=== PATIENT | female | born 1960 | race African-American/Black ===

== ENCOUNTER 2018-01-29 15:24 | Emergency (ER) | payer MEDICARE, MEDICAID ==
[~2018-01-29] VITALS: Ht 154.9 cm; Wt 54.0 kg
[2018-01-29 15:25] VITALS: BP 125/61
[2018-01-29] MEDS ORDERED: LEVO25TA7 PO (15:28)
[2018-01-29] MEDS ORDERED: LORAZEPAM 0.5MG TABLET PO ONE (16:15)
== END 2018-01-29 22:28 | disposition left against medical advice (07) ==
LOC: ER 16:14
DX: F41.0 Panic disorder [episodic paroxysmal anxiety] (principal); E05.90 Thyrotoxicosis, unspecified without thyrotoxic crisis or storm
CPT/HCPCS: 93005; 99284

== ENCOUNTER 2018-04-01 18:39 | Emergency (ER) | payer MEDICARE, MEDICAID ==
[~2018-04-01] VITALS: Ht 154.9 cm; Wt 55.0 kg
[~2018-04-01 18:39] MED LIST: LEVO25TA7 PO
[2018-04-01] MEDS ORDERED: LORAZEPAM 0.5MG TABLET PO ONE (21:45)
[2018-04-01 22:09] LABS: BASOPHILS % 0.6 % (0.0-2.0); EOSINOPHILS % 0.3 % (0.0-5.0); HEMATOCRIT. 34.8 % (36.0-48.0); HEMOGLOBIN. 11.6 g/dL (12.0-16.0); LYMPHOCYTES % 28.5 % (20.0-50.0); MEAN CORPUSCULAR HEMOGLOBIN 28.3 pg (28.0-32.0); MEAN CORPUSCULAR VOLUME 84.7 fL (81.0-99.0); MEAN PLATELET VOLUME 9.3 fl (7.4-10.4); MONOCYTES % 8.4 % (2.0-8.0); NEUTROPHILS % 62.2 % (40.0-76.0); PLATELET 169 x1000/uL (130-400); RED BLOOD CELL COUNT 4.11 mill/uL (4.2-5.4); RED CELL DISTRIBUTION WIDTH 12.6 % (11.6-14.6)
[2018-04-01 22:21] LABS: CHLORIDE 100 mEq/L (98-107)
[2018-04-01 22:25] LABS: ETHANOL BLOOD < 10 mg/dL
[2018-04-01 22:39] VITALS: BP 128/56
[2018-04-01 23:01] LABS: CLARITY URINE CLEAR (CLEAR); COLOR URINE YELLOW (YELLOW); KETONES URINE TRACE (NEGATIVE); LEUKOCYTE ESTERASE URINE NEGATIVE (NEGATIVE); NITRITE URINE NEGATIVE (NEGATIVE); OCCULT BLOOD URINE NEGATIVE (NEGATIVE); PH URINE 6.5 (4.5-8.0); PROTEIN URINE NEGATIVE (NEGATIVE); SPECIFIC GRAVITY URINE 1.001 (1.005-1.030); UROBILINOGEN URINE 0.2 E.U./dL (0.2-1.0)
[2018-04-01 23:11] LABS: *AMPHETAMINES SCREEN URINE NEGATIVE (NEGATIVE); *BARBITURATES SCREEN URINE NEGATIVE (NEGATIVE); *BENZODIAZEPINES SCREEN URINE NEGATIVE (NEGATIVE); *COCAINE SCREEN URINE NEGATIVE (NEGATIVE); METHADONE URINE SCREEN NEGATIVE (NEGATIVE)
[2018-04-01 23:12] LABS: CANNABINOID URINE SCREEN NEGATIVE (NEGATIVE); OPIATES URINE SCREEN NEGATIVE (NEGATIVE); PHENCYCLIDINE URINE SCREEN NEGATIVE (NEGATIVE)
== END 2018-04-02 00:17 | disposition home or self-care (01) ==
LOC: ER 20:39
DX: R07.89 Other chest pain (principal); E03.9 Hypothyroidism, unspecified
CPT/HCPCS: 36415; 71045; 80053; 80305; 81003; 84484; 85025; 93005; 99285; G0482